=== PATIENT | male | born 1995 | race Caucasian/White ===

== ENCOUNTER 2018-12-22 08:52 | Emergency (ER) | payer BC ==
[~2018-12-22] VITALS: Ht 182.9 cm; Wt 113.4 kg
[2018-12-22 08:52] VITALS: BP 139/79
--- NOTE | 2018-12-22 09:04 | PHYS DOC ---
Adult General Chief Complaint Chief Complaint: BACK PAIN - NO INJURY HPI HPI Patient is a 23 year old male who presented via EMS with complaining of low back pain. Patient states he woke up around 0800 today because of right flank and back pain as a sharp pain without radiation that getting better and worse and had nausea during episodes of sharp pain. Patient patient denies urinary symptoms but states he was not able to urinate. Patient denies injury, focal neuro deficit, percent dehydration, history of the same pain, changing pain with activity. Patient rated his pain as a moderate pain and does not want pain medication in ER. Review of Systems Review of Systems Constitutional: Denies fever or chills [] Eyes: Denies change in visual acuity, redness, or eye pain [] HENT: Denies nasal congestion or sore throat [] Respiratory: Denies cough or shortness of breath [] Cardiovascular: No additional information not addressed in HPI [] GI: Denies abdominal pain, nausea, vomiting, bloody stools or diarrhea [] : Denies dysuria or hematuria [] Musculoskeletal: Denies joint pain, reports back pain [] Integument: Denies rash or skin lesions [] Neurologic: Denies headache, focal weakness or sensory changes [] Endocrine: Denies polyuria or polydipsia [] All other systems were reviewed and found to be within normal limits, except as documented in this note. Allergies Allergies Allergies Coded Allergies Type Severity Reaction Last Updated Verified azithromycin Allergy Intermediate RASH 12/22/18 Yes Physical Exam Physical Exam Constitutional: Well developed, well nourished, mild distress, non-toxic appearance. [] HENT: Normocephalic, atraumatic, moist oral mucosa. Eyes: PERRLA, EOMI, conjunctiva normal, no discharge. [] Neck: Normal range of motion, no tenderness, supple, no stridor. [] Cardiovascular:Heart rate regular rhythm, no murmur [] Lungs & Thorax: Bilateral breath sounds clear to auscultation [] Abdomen: Bowel sounds normal, soft, no tenderness, no masses, no pulsatile masses. [] Skin: Warm, dry, no erythema, no rash. [] Back: No midline tenderness, right paraspinal muscle spasm , no CVA tenderness. [] Extremities: No tenderness, no cyanosis, no clubbing, ROM intact, no edema. [] Neurologic: Alert and oriented X 3, no focal deficits noted. [] Psychologic: Affect normal, judgement normal, mood normal. [] Current Patient Data Vital Signs Vital Signs Date Time Temp Pulse Resp B/P (MAP) Pulse Ox O2 Delivery O2 Flow Rate FiO2 12/22/18 08:52 98.3 79 18 139/79 (99) 96 Room Air 98.3 Lab Values Laboratory Tests Test 12/22/18 09:05 Urine Collection Type Unknown Urine Color Yellow Urine Clarity Clear Urine pH 5.0 Urine Specific Alpine >=1.030 Urine Protein Negative mg/dL (NEG-TRACE) Urine Glucose (UA) Negative mg/dL (NEG) Urine Ketones (Stick) Negative mg/dL (NEG) Urine Blood Large (NEG) Urine Nitrite Negative (NEG) Urine Bilirubin Negative (NEG) Urine Urobilinogen Dipstick 0.2 mg/dL (0.2 mg/dL) Urine Leukocyte Esterase Negative (NEG) Urine RBC >40 /HPF (0-2) Urine WBC 1-4 /HPF (0-4) Urine Squamous Epithelial Cells Occ /LPF Urine Bacteria Few /HPF (0-FEW) Urine Mucus Marked /LPF EKG EKG [] Radiology/Procedures Radiology/Procedures [] [address] [place], [place] [id number] IMAGING REPORT Signed PATIENT: ISMAEL STOKES ACCOUNT: [id number] : 1995 LOCATION: ER AGE: 23 SEX: M EXAM STATUS: REG ER ORD. PHYSICIAN: MANDA LIU MD REASON: RT flank pain PROCEDURE: CT ABDOMEN PELVIS WO CONTRAST Examination: CT ABDOMEN PELVIS WO CONTRAST History: Right flank pain Comparison/Correlation: None Findings: Axial images of the abdomen and pelvis were obtained without contrast. Sagittal and coronal reformatted images were provided. Visualized lung bases are clear. Liver, spleen, pancreas, and adrenal glands are normal. Gallbladder fossa is unremarkable. Punctate right renal lower pole calyceal calculus is present. Slight fullness of the right pelvic calyceal system is present. There is no definite obstructive radiopaque collecting system calculus. There is a calcific density about the right ureterovesical junction which probably represents a phlebolith. No radiopaque left collecting system calculi or obstruction. Urinary bladder is mostly decompressed. Appendix is normal. No bowel obstruction or extraluminal gas. Gallbladder is unremarkable. Bony structures are unremarkable. Impression: Slight fullness of the right pelvicalyceal system. Query for possibility of recent passage of calculus. No definite obstructive calculus identified. Nonobstructive right renal calculus is present. PQRS Compliance Statement: One or more of the following individualized dose reduction techniques were utilized for this examination: 1. Automated exposure control 2. Adjustment of the mA and/or kV according to patient size 3. Use of iterative reconstruction technique Electronically signed by: Lex Gutierrez MD (12/22/2018 9:29 AM) [facility] DICTATED and SIGNED BY: LEX GUTIERREZ MD DATE: 12/22/18928 Course & Med Decision Making Course & Med Decision Making Pertinent Labs and Imaging studies reviewed. (See chart for details) Evaluation of patient in ER showed 23-year-old male patient with sudden onset of right flank pain that improved at arrival to ER. Patient had unremarkable physical exam. UA showed hematuria and labs showed passed kidney stone with nephrolithiasis. Patient was advised to increase fluid intake and avoid of dehydration. I've spoken with the patient and/or caregivers. I've explained the patient's condition, diagnosis and treatment plan based on information available to me at this time. I've answered the patient's and/or caregivers questions and addressed any concerns. The patient and/or caregivers have a good understanding the patient's diagnosis, condition and treatment plan as can be expected at this point. Vital signs have been stabilized. The patient's condition is stable for discharge from the emergency department. The patient will pursue further outpatient evaluation with her primary care provider or other designated consulting physician as outlined in the discharge instructions. Patient and/or caregivers are agreeable to this plan of care and follow-up instructions have been explained in detail. The patient and/or caregivers have received these instructions in written format and expressed understanding of these discharge instructions. The patient and her caregivers are aware that if any significant change in condition or worsening of symptoms should prompt him to immediately return to this of the closest emergency department. If an emergent department is not readily available I would encourage him to call 911. Norbert Disclaimer Dragon Disclaimer This electronic medical record was generated, in whole or in part, using a voice recognition dictation system. Departure Departure Impression: Primary Impression: Renal colic on right side Additional Impressions: Hematuria Nephrolithiasis Disposition: HOME, SELF-CARE ([phone]) Condition: IMPROVED Patient Instructions: Diet for Kidney Stones Additional Instructions: Drink plenty of liquids Follow-up with your primary care physician in 3-5 days Return to ER if not getting better Scripts Ibuprofen (IBUPROFEN) 800 Mg Tablet 800 MG PO PRN Q8HRS PRN for INFLAMMATION, #20 TAB Prov: MANDA LIU MD 12/22/18 Problem Qualifiers Additional Impressions: Hematuria Hematuria type: unspecified type Qualified Codes: R31.9 - Hematuria, unspecified MANDA LIU MD Dec 22, 2018 09:04
[2018-12-22 09:17] LABS: BILIRUBIN,URINE NEGATIVE (NEG); CLARITY,URINE CLEAR; COLOR,URINE YELLOW; NITRITE,URINE NEGATIVE (NEG); PROTEIN,URINE NEGATIVE (NEG-TRACE); UROBILINOGEN,URINE 0.2 mg/dL (0.2 mg/dL)
[2018-12-22 09:29] LABS: BACTERIA,URINE FEW /HPF (0-FEW); RBC,URINE >40 /HPF (0-2); SQUAMOUS EPITHELIAL CELL,UR OCC /LPF
--- NOTE | 2018-12-22 09:32 | RAD ---
Examination: CT ABDOMEN PELVIS WO CONTRAST History: Right flank pain Comparison/Correlation: None Findings: Axial images of the abdomen and pelvis were obtained without contrast. Sagittal and coronal reformatted images were provided. Visualized lung bases are clear. Liver, spleen, pancreas, and adrenal glands are normal. Gallbladder fossa is unremarkable. Punctate right renal lower pole calyceal calculus is present. Slight fullness of the right pelvic calyceal system is present. There is no definite obstructive radiopaque collecting system calculus. There is a calcific density about the right ureterovesical junction which probably represents a phlebolith. No radiopaque left collecting system calculi or obstruction. Urinary bladder is mostly decompressed. Appendix is normal. No bowel obstruction or extraluminal gas. Gallbladder is unremarkable. Bony structures are unremarkable. Impression: Slight fullness of the right pelvicalyceal system. Query for possibility of recent passage of calculus. No definite obstructive calculus identified. Nonobstructive right renal calculus is present. PQRS Compliance Statement: One or more of the following individualized dose reduction techniques were utilized for this examination: 1. Automated exposure control 2. Adjustment of the mA and/or kV according to patient size 3. Use of iterative reconstruction technique Electronically signed by: Lex Ernadnez MD (12/22/2018 9:29 AM) [facility]
[2018-12-22] MEDS ORDERED: IBUP-1060 PO (09:49)
== END 2018-12-22 10:08 | disposition home or self-care (01) ==
LOC: ER 08:52
DX: N20.0 Calculus of kidney (principal); R11.0 Nausea; Z88.1 Allergy status to other antibiotic agents
CPT/HCPCS: 74176; 81001; 99285